=== PATIENT | male | born 1960 | race Caucasian/White ===

== ENCOUNTER 2023-11-12 15:40 | Inpatient (IN) | payer OTHER ==
[~2023-11-12] VITALS: Ht 172.7 cm; Wt 114.3 kg
[2023-11-12 15:48] VITALS: O2SAT 96
[2023-11-12 15:52] VITALS: BP 129/99; PULSE 97; RESP 20; TEMP 98.4; O2SAT 95
[2023-11-12 16:27] LABS: BASOPHILS # (AUTO) 0.1 K/uL (0.00-0.22); BASOPHILS % (AUTO) 0.8 % (0.0-2.0); EOSINOPHILS # (AUTO) 0.3 K/uL (0-0.4); EOSINOPHILS % (AUTO) 2.5 % (0.0-4.0); HEMATOCRIT 45.2 % (36-52); HEMOGLOBIN 15.1 g/dL (12.0-18.0); LYMPHOCYTES # (AUTO) 3.5 K/uL (2.0-11.5); LYMPHOCYTES % (AUTO) 30.1 % (20.5-51.1); MEAN CORPUSCULAR HEMOGLOBIN 28 pg (27-31); MEAN CORPUSCULAR HGB CONC 33 g/dL (33-37); MEAN CORPUSCULAR VOLUME 84.2 fL (80-94); MONOCYTES # (AUTO) 0.8 K/uL (0.8-1.0); MONOCYTES % (AUTO) 6.8 % (1.7-9.3); NEUTROPHILS # (AUTO) 6.8 K/uL (1.8-7.7); NEUTROPHILS % (AUTO) 59.8 % (42.2-75.2); PLATELET COUNT (AUTO) 332 K/uL (140-450); RED BLOOD CELL COUNT(AUTO) 5.37 MIL/uL (4.20-6.10); RED CELL DISTRIBUTION WIDTH 14.3 % (11.6-13.7); WHITE BLOOD COUNT (AUTO) 11.5 K/uL (4.8-10.8)
[2023-11-12 16:35] LABS: ANION GAP 11.1 (8-16); CALCIUM 9.1 mg/dL (8.5-10.1); CREATININE 0.7 mg/dL (0.6-1.3); POTASSIUM 4.1 mmol/L (3.5-5.1)
[2023-11-12] MEDS ORDERED: ATOR40TA40 PO (16:50)
[2023-11-12] MEDS ORDERED: LISI10TA30 PO (16:50)
[2023-11-12] MEDS ORDERED: GLIP10TA12 PO (16:50)
[2023-11-12] MEDS ORDERED: ASPI-1856 PO (16:50)
[2023-11-12] MEDS ORDERED: METF-352 PO (16:50)
[2023-11-12 17:50] VITALS: O2SAT 96
[2023-11-12] MEDS ORDERED: HYDROcodone/APAP 5/325 MG 1 TAB TAB PO PRN (19:55)
[2023-11-12] MEDS ORDERED: ONDANSETRON 4 MG/2 ML VIAL IVP PRN (19:55)
[2023-11-12] MEDS ORDERED: LORazepam 2 MG/ML VIAL IVP PRN (19:55)
[2023-11-12] MEDS ORDERED: ACETAMINOPHEN 325 MG TAB PO PRN (19:55)
[2023-11-12 20:58] VITALS: O2SAT 94
[2023-11-12 23:54] VITALS: O2SAT 94
[2023-11-13 03:12] VITALS: O2SAT 94
[2023-11-13 05:15] VITALS: O2SAT 95
[2023-11-13 06:46] LABS: BASOPHILS # (AUTO) 0.1 K/uL (0.00-0.22); BASOPHILS % (AUTO) 0.8 % (0.0-2.0); EOSINOPHILS # (AUTO) 0.3 K/uL (0-0.4); EOSINOPHILS % (AUTO) 3.8 % (0.0-4.0); HEMATOCRIT 44.1 % (36-52); LYMPHOCYTES # (AUTO) 2.4 K/uL (2.0-11.5); LYMPHOCYTES % (AUTO) 31.8 % (20.5-51.1); MEAN CORPUSCULAR HEMOGLOBIN 29 pg (27-31); MEAN CORPUSCULAR HGB CONC 34 g/dL (33-37); MEAN CORPUSCULAR VOLUME 84.3 fL (80-94); MONOCYTES # (AUTO) 0.6 K/uL (0.8-1.0); NEUTROPHILS # (AUTO) 4.3 K/uL (1.8-7.7); NEUTROPHILS % (AUTO) 55.6 % (42.2-75.2); PLATELET COUNT (AUTO) 309 K/uL (140-450); RED BLOOD CELL COUNT(AUTO) 5.22 MIL/uL (4.20-6.10); RED CELL DISTRIBUTION WIDTH 14.2 % (11.6-13.7); WHITE BLOOD COUNT (AUTO) 7.6 K/uL (4.8-10.8)
[2023-11-13 07:17] LABS: ALBUMIN 3.4 g/dL (3.4-5.0); ANION GAP 11.6 (8-16); CALCIUM 8.8 mg/dL (8.5-10.1); CARBON DIOXIDE 26.3 mmol/L (21-32); CREATININE 0.7 mg/dL (0.6-1.3); MAGNESIUM 1.5 mg/dL (1.8-2.4); POTASSIUM 3.9 mmol/L (3.5-5.1); TOTAL BILIRUBIN 0.6 mg/dL (0.0-1.0); TOTAL PROTEIN, SERUM 7.1 g/dL (6.4-8.2)
[2023-11-13] MEDS ORDERED: SEMA3TAB4 PO (07:28)
[2023-11-13 08:00] VITALS: BP 127/85; PULSE 84; RESP 20; TEMP 97.1; O2SAT 98
[2023-11-13 09:00] VITALS: PULSE 84; RESP 14; O2SAT 97
[2023-11-13] MEDS: ENOXAPARIN 40 MG/0.4 ML SYR SUBQ SCH (09:00)
[2023-11-13] MEDS: ASPIRIN 81 MG TAB.CHEW PO SCH (09:00)
[2023-11-13 12:00] VITALS: BP 138/78; PULSE 86; PULSE 88; RESP 18; TEMP 97.7; O2SAT 98
[2023-11-13] MEDS: MAGNESIUM OXIDE 400 MG TAB PO SCH (14:47)
[2023-11-13 17:55] VITALS: BP 138/78; PULSE 86; RESP 18; TEMP 97.7
== END 2023-11-13 18:15 | disposition home or self-care (01) | DRG 313 ==
LOC: MED 15:40 → MMU 20:21
PROVIDERS: ADMIT Hospitalist; ATTEND Hospitalist
DX: R07.89 Other chest pain (principal); E11.9 Type 2 diabetes mellitus without complications; I10 Essential (primary) hypertension; E78.5 Hyperlipidemia, unspecified; Z79.82 Long term (current) use of aspirin; Z79.899 Other long term (current) drug therapy
CPT/HCPCS: 36415; 71045; 80048; 80053; 82948; 83735; 83880; 84484; 85025; 87081; 93005; 99285; Q0092